=== PATIENT | female | born 1990 | race Asian ===

== ENCOUNTER 2018-09-02 00:48 | Emergency (ER) | payer OTHER ==
[~2018-09-02] VITALS: Ht 160 cm; Wt 52.7 kg
[2018-09-02 00:53] VITALS: Ht 160 cm; Wt 52.7 kg
[2018-09-02 01:20] VITALS: BP 130/94
== END 2018-09-02 01:20 | disposition home or self-care (01) ==
LOC: ED 00:48
DX: L03.116 Cellulitis of left lower limb (principal); S80.12XA Contusion of left lower leg, initial encounter; W57.XXXA Bitten or stung by nonvenomous insect and other nonvenomous arthropods, initial encounter; Y93.89 Activity, other specified; Y92.89 Other specified places as the place of occurrence of the external cause; Y99.8 Other external cause status